=== PATIENT | female | born 2000 | race African-American/Black ===

== ENCOUNTER 2023-11-20 18:23 | Emergency (ER) | payer OTHER ==
--- NOTE | 2023-11-20 18:40 | ED Physician Documentation ---
History of Present Illness - Stated complaint Stated Complaint: RT SIDE ABD PX - Chief complaint Chief Complaint: Abd Pain - Additonal information Additional information: 23-year-old female with no pertinent past medical history aside from healthy and delivery about 2 years ago presents emergency department for sudden onset lower pelvic cramping. Patient says that she is about a week away from her. She normally has regular menses she does not normally get cramps with her periods she said the pain eventually slightly radiated to her back she said it felt very similar to poop cramps she is able to have a successful bowel mov ement but was still feeling similar cramping sensation afterwards. She has not taken any Tylenol ibuprofen no vaginal bleeding or vaginal discharge she has not she says that she is not currently sexually active no fevers or chills she is overall the pain is actually quite improved. PD PAST MEDICAL HISTORY - Past Medical History Past Medical History: No - Past Surgical History Past Surgical History: No - Present Medications Home Medications: Ambulatory Orders Medication Instructions Recorded Confirmed No Known Home Medications 11/20/23 11/20/23 - Allergies Allergies/Adverse Reactions: Allergies Allergy/AdvReac Type Severity Reaction Status Date / Time No Known Drug Allergies Allergy Verified 11/20/23 18:34 - Social History Does the pt smoke?: No Smoking Status: Never smoker Does the pt drink ETOH?: No Does the pt have substance abuse?: No - Immunizations Immunizations are current?: Yes - POLST Patient has POLST: No PD ED PE NORMAL - Vitals Vital signs reviewed: Yes - General General: Alert and oriented X 3, No acute distress, Well developed/nourished - Abdomen Abdomen: Normal bowel sounds, Soft, Non tender, Non distended, No organomegaly - Back Back: No CVA TTP, No spinal TTP - Derm Derm: Normal color, Warm and dry, No rash Results - Vitals Vitals: Vital Signs - 24 hr 11/20/23 11/20/23 18:34 19:27 Temperature 36.7 C 36.2 C L Heart Rate 110 H 74 Respiratory 16 16 Rate Blood Pressure 150/90 H 133/67 H O2 Saturation 100 98 Oxygen O2 Source Room air - Labs Labs: Laboratory Tests 11/20/23 18:38 Urine Color YELLOW Urine Clarity CLEAR Urine pH 7.0 Ur Specific [place] <=1.005 Urine Protein NEGATIVE Urine Glucose (UA) NEGATIVE Urine Ketones NEGATIVE Urine Occult Blood NEGATIVE Urine Nitrite NEGATIVE Urine Bilirubin NEGATIVE Urine Urobilinogen 0.2 (NORMAL) Ur Leukocyte Esterase NEGATIVE Ur Microscopic Review NOT INDICATED Urine Culture Comments NOT INDICATED Urine HCG, Qual NEGATIVE PD Medical Decision Making - ED course ED course: 23-year-old female presents emergency department for abdominal cramping that has now fully resolved. Patient's vitals are quite stable we discussed the pros and cons of possible workup such as doing labs and imaging but patient said that her symptoms have significantly improved I informed the patient that I do not believe that this is an emergency and that we can do the labs but she opted to hold off for now. She was given a Toradol shot here in the emergency department told to drink plenty of fluids going home as this could be bowel movement cramps and she could be dehydrated which can cause constipation. This also could be menses cramps given that her menses is about a week away. She is told to take Tylenol ibuprofen for cramping in the future and given strict ER return precautions she is reassured that I more than happy to do labs and imaging but she agrees that she does not believe this is warranted at this point in time. Her abdominal pain and cramping is now almost fully resolved she feels better after the Toradol injection and feels safe for discharge told to follow-up with primary care provider emergent return precautions given. Departure - Departure Disposition: 01 Home, Self Care Clinical Impression: Abdominal cramps Instructions: ED Cramping Menstrual, ED Cramp Heat Comments: Thank you for trusting us with your care as we discussed it is very unlikely that you have anything emergent going on right now this could be related to bowel movement cramps or irregular menses cramps but given the fact that you are pain has alleviated since you have been here without any medication I believe that is going to continue to get better. Go home drink plenty of fluids to help having more regular bowel movements we have given you a Toradol shot here in the emergency department which should significantly help with pain and discomfort think if this is a strong ibuprofen does not cause any sedation. Please come back to the ER if you are having any significant worsening pain vaginal bleeding vaginal odor pain with urination or any other concerning emergent symptoms that do not improve after taking simple Tylenol and ibuprofen. Forms: PCP List Discharge Date/Time: 11/20/23 19:27
[2023-11-20 18:43] LABS: BILIRUBIN,URINE NEGATIVE (NEGATIVE); GLUCOSE, URINE (UA) NEGATIVE (NEGATIVE); KETONES,URINE (UA) NEGATIVE (NEGATIVE); LEUKOCYTE ESTERASE, URINE NEGATIVE (NEGATIVE); NITRITE,URINE NEGATIVE (NEGATIVE); OCCULT BLOOD,URINE NEGATIVE (NEGATIVE); PROTEIN,URINE NEGATIVE (NEGATIVE); UROBILINOGEN,URINE 0.2 (NORMAL) E.U./dL (NORMAL)
[2023-11-20 18:47] LABS: CLARITY,URINE CLEAR (CLEAR)
[2023-11-20 18:48] LABS: HCG UR QUAL NEGATIVE
[2023-11-20] MEDS: KETOROLAC 30 MG/ML VIAL IM STA (19:23)
[2023-11-20 19:31] VITALS: BP 133/67; O2SAT 98
== END 2023-11-20 19:27 | disposition home or self-care (01) ==
LOC: ED 18:23
DX: R10.9 Unspecified abdominal pain (principal)
CPT/HCPCS: 80053; 81001; 81003; 81025; 83690; 85025; 87086; 96372; 99283